=== PATIENT | male | born 1940 | race Caucasian/White ===

== ENCOUNTER 2024-09-20 08:41 | Day surgery (SDC) | payer MEDICARE, BC, SELFPAY ==
[2024-09-20] VITALS (13 sets, daily range): BP systolic 170–199; BP diastolic 72–95; PULSE 60–74; RESP 9–20; TEMP 36.1–36.7; O2SAT 97–100; BMI 18.2
[2024-09-20] MEDS: Lactated Ringers 1,000 ML 50 ML IV (09:13)
--- NOTE | 2024-09-20 09:51 | W.ANESPRE ---
General Info Date of Service Date Performed: 09/20/24 Height: 5 ft 10 in Weight: 57.7 kg Body Mass Index (BMI): 18.2 Surgical Procedure: Operation Date: 09/20/24 10:10 Proposed Procedure Side Surgeon p Micro Laryngoscopy w/Biopsy/Removal of Rt Vocal Cord Lesion Right Jose F Rendon MD Meds Allergies and Home Medications Allergies Allergy/AdvReac Type Severity Reaction Status Date / Time No Known Allergies Allergy Verified 09/20/24 08:57 Home Medication ?Medication ?Instructions ?Recorded aspirin 81 mg tablet,delayed 81 mg PO DAILY 06/25/24 release (Adult Aspirin Regimen) atorvastatin 80 mg tablet 80 mg PO DAILY 06/25/24 carvedilol 3.125 mg tablet 3.125 mg PO BID 06/25/24 cetirizine 10 mg tablet 10 mg PO DAILY PRN 06/25/24 coenzyme Q10 100 mg capsule 100 mg PO DAILY 06/25/24 (CoQ-10) fluticasone propionate 50 1 spray intranasal DAILY 06/25/24 mcg/actuation nasal spray,suspension (Flonase Allergy Relief) losartan 25 mg tablet 12.5 mg PO DAILY 06/25/24 nitroglycerin 0.4 mg sublingual 0.4 mg sublingual Q5M PRN 06/25/24 tablet carvedilol 3.125 mg tablet 3.125 mg PO BID 08/10/24 Current Visit Medications: Current Medications Generic Name Dose Route Start Last Admin Trade Name Freq PRN Reason Stop Dose Admin Ringer's Solution 1,000 mls @ 50 mls/hr 09/20/24 06:00 09/20/24 09:13 IV 09/20/24 23:59 50 mls/hr INFUSION OMI Administration IV Miscellaneous Supplies 1 each 09/20/24 06:00 Iv Access IV 09/20/24 23:59 DIRECTED OMI Sodium Chloride 0 ml 09/20/24 06:00 Normal Saline Flush 10 Ml Syr IV 09/20/24 23:59 PRN PRN Sodium Chloride 0 ml 09/20/24 06:00 Normal Saline 10 Ml Vial IJ 09/20/24 23:59 DIRECTED PRN Sterile Water 0 ml 09/20/24 06:00 Water,Injection,Sterile 10 Ml Vial IJ 09/20/24 23:59 DIRECTED PRN PFSH Active Problems Active Problems: Problem Status Onset Code 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 Medical History Medical History Hematuria Environmental allergies Convulsions Atrial flutter SVT (supraventricular tachycardia) Peripheral vascular disease Other cerebral infarction due to occlusion or stenosis of small artery Ischemic cardiomyopathy Impacted cerumen, bilateral Hyperglycemia, unspecified Hoarseness of voice Essential hypertension Elevated TSH Cholelithiases Carotid artery disease BPH without obstruction/lower urinary tract symptoms Aortic stenosis Allergic rhinitis Alcohol abuse, uncomplicated Surgical History Surgical History H/O heart artery stent History of tonsillectomy and adenoidectomy Tobacco Smoking/Tobacco Use Status: Former Tobacco Use Alcohol Alcohol Intake: current Alcohol intake frequency: 0-2 drinks per day Alcohol type: beer and wine Substance Use Substance use: Daily Substance use type: marijuana Details: Last smoked marijuana 09/19/24 Vital Signs and Lab Results Vital Signs Most Recent Vital Signs in EMR: Most Recent Vital Signs Temp Pulse Resp BP Pulse Ox 36.3 C L 64 16 170/84 H 97 09/20/24 09:00 09/20/24 09:00 09/20/24 09:00 09/20/24 09:00 09/20/24 09:00 Anesthesia Assessment and Plan Anesthesia History Personal History: No History of Anesthesia Complications Family History: No Family History of Anesthesia Complications Exercise Tolerance Exercise Tolerance: Metabolic Equivalents>4 Pertinent Negatives Pertinent Negatives: No Symptoms of GERD, No Major Pulmonary Symptoms or Complaints and No History of CVA/TIA Cardiac & Pulmonary Exam Cardiac Exam: Normal S1/S2 Heart Sounds Pulmonary Exam: Clear Bilateral Breath Sounds Implantable Cardiac Device Does patient have a Pacemaker or an ICD?: No Airway Exam Known Difficult Airway: No Mallampati Class: 2 Mouth Opening: Normal (> 3cm) Thyromental Distance: Greater than 3 cm Neck Range of Motion: Full ROM Neck Circumference: Normal Teeth Condition: Generalized Poor Dentition and Removable Dentures/Plates Upper ASA Classification ASA Score: ASA 3 Emergency Case?: No NPO Status NPO Status: NPO Clears >2 hours, Solids >8 hours Anesthesia Plan Resuscitation Status: Full Code Anesthesia Technique: General Anesthesia Airway Planned: Endotracheal Tube Monitors Used: Standard Monitors
--- NOTE | 2024-09-20 10:08 | W.PM.DSUDISC ---
Date of service: 09/20/24 Discharge Plan Disposition Patient Disposition: Home Condition: Good Discharge Details Reason For Visit: Microlaryngoscopy with biopsy Attending Provider: Jose F Rendon Primary Care Provider: Melissa Carrillo Home Meds and New Rx's Prescriptions: No Action carvedilol 3.125 mg tablet 3.125 mg PO BID Rx Instructions: must administer with a meal/food aspirin [Adult Aspirin Regimen] 81 mg tablet,delayed release (DR/EC) 81 mg PO DAILY atorvastatin 80 mg tablet 80 mg PO DAILY carvedilol 3.125 mg tablet 3.125 mg PO BID Rx Instructions: must administer with a meal/food cetirizine 10 mg tablet 10 mg PO DAILY PRN coenzyme Q10 [CoQ-10] 100 mg capsule 100 mg PO DAILY fluticasone propionate [Flonase Allergy Relief] 50 mcg/actuation spray,suspension 1 spray intranasal DAILY Rx Instructions: administer into each nostril losartan 25 mg tablet 12.5 mg PO DAILY nitroglycerin 0.4 mg tablet, sublingual 0.4 mg sublingual Q5M PRN Rx Instructions: do not exceed 3 doses per episode Discharge Instructions Additional Instructions: My cell phone number is [phone]. Please call with any questions or concerns. If you are unable to reach me and you feel it is an emergency, please call 911 or proceed to the emergency room Avoid shouting or whispering or excess speaking Use Tylenol or ibuprofen for pain control. No driving for 72 hours, May shower starting today Expect small amounts of blood in your mucus for the next couple of days If you have not heard from me within a week with regard to pathology, please call the office Referrals: Jose F Rendon MD [ [facility] STAFF PHYSICIAN, ENT Surgical] Referral Note: 1 month Diet:: As Tolerated Discharge Orders Discharge Orders: Discharge Order (Routine); Ordered 09/20/24 Ordered By: Jose F Rendon
--- NOTE | 2024-09-20 10:45 | VOCCOR_PTH ---
PATIENT: Raymond Freire III LOC: [facility] U#:[id number] AGE/SX: 84/M ROOM: RE09/20/[address]: Jose F Rendon MD : [id number] BED: DIS: 09/20/2024 SPEC #: [id number] RECD: 09/20/24 13:16 STATUS: ALEN REQ #: [id number] KATHIE: 09/20/24 10:[address]: Jose F Rendon DEPT: Surgical Specimen RECD BY: Ayana Gant ENTERED: 09/20/24 13:18 SP TYPE: VOCCOR OTHR DR: Melissa Carrillo Tissues: 1 - VOCAL CORD Procedures: GROSS AND MICRO LEVEL 4 Comments: [id number]
--- NOTE | 2024-09-20 10:50 | W.PM.OP ---
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 Options were explained to the patient regarding further management. He elected to undergo the above procedure. All questions were answered prior to the procedure. H&P was reviewed. The below was performed. There has been no change. Findings: Fungating lesion occupying the anterior one third of the right vocal cord extending up to but not across the anterior commissure. This involves both the superior, medial, and inferior surfaces of the vocal cord. No other lesions are noted. The lesion palpates as though it is fixed. The lesion was friable Procedure Description: After obtaining an adequate level of general endotracheal anesthesia the patient was positioned in the supine position and prepped and draped in appropriate fashion. A 4 x 4 is placed along the upper gumline to protect the upper gumline and then a Holinger laryngoscope carefully introduced into the oral cavity and advanced into the larynx. Once good visualization of the vocal cords was achieved, the Holinger laryngoscope was placed into suspension and the operating microscope with a 400 mm lens moved into position. Using the microscope for visualization, the anterior vocal cord lesion on the right was biopsied. Specimens were placed on Telfa and then placed in formalin and sent to pathology. After ensuring adequate hemostasis, the Holinger laryngoscope was withdrawn after taking it out of suspension and the oral and oropharyngeal tissues inspected revealing no evidence of trauma. The patient was then awakened and extubated by anesthesia and taken the recovery room in stable condition. I was present throughout the entire case. Date of Procedure: 09/20/24
--- NOTE | 2024-09-20 11:21 | W.ANESPOSTOP ---
Postoperative Evaluation Date, Time and Location Date Performed: 09/20/24 Time Performed: 11:21 Patient Location: PACU Vital Signs Most Recent Imported Vital Signs: Most Recent Vital Signs Temp Pulse Resp BP Pulse Ox 36.7 C 66 10 L 171/84 H 98 09/20/24 11:10 09/20/24 11:16 09/20/24 11:16 09/20/24 11:15 09/20/24 11:16 Pain Score Most Recent Pain Score: Most Recent Pain Score Pain Level 0 09/20/24 09:00 Assessment Mental Status: Awake (Alert & Oriented to Patient Baseline) Airway and Respiratory Function: Patent airway with normal (patient baseline) respiratory exam Cardiovascular Function: Hemodynamically Stable Hydration Status: Adequately Hydrated Nausea & Vomiting: No Nausea or Vomiting Pain: Pt. Denies Any Pain Peripheral Nerve Block: Patient did not receive a nerve block
== END 2024-09-20 12:22 | disposition home or self-care (01) ==
PROVIDERS: PCP Internal Medicine; Visit Provider Otolaryngology
PROC: 0CJS8ZZ Inspection of Larynx, Via Natural or Artificial Opening Endoscopic (ICD-10-PCS; CPT 31575; principal; 2024-09-20 10:00)
DX: C32.0 Malignant neoplasm of glottis (principal); R49.0 Dysphonia; I25.5 Ischemic cardiomyopathy; I10 Essential (primary) hypertension; F10.10 Alcohol abuse, uncomplicated; I35.0 Nonrheumatic aortic (valve) stenosis; I73.9 Peripheral vascular disease, unspecified
CPT/HCPCS: 31536; 88305; J2704; J3010